=== PATIENT | male | born 1960 | race Caucasian/White ===

== ENCOUNTER 2020-03-16 08:11 | Outpatient (REF) | payer OTHER, SELFPAY ==
[2020-03-16 10:21] LABS: MANUAL DIFF FLAG NO
[2020-03-16 10:40] LABS: Eosinophils Absolute Auto 0.2 X10*3/uL (0.0-0.4); Eosinophils Percent Auto 3.8 % (0-4); Hematocrit 43.6 % (42-52); Hemoglobin 14.2 g/dl (14.0-18.0); Imm Gran Abs Auto 0.02 X10*3/uL (0.00-0.03); Imm Gran Pct Auto 0.5 % (0.0-0.4); Lymphocytes Absolute Auto 1.1 X10*3/uL (1.2-4.9); Mean Corpuscular HGB Conc 32.6 g/dl (31.0-36.0); Mean Corpuscular Volume 89.2 fL (80-98); Mean Platelet Volume 9.9 fL (9.4-12.4); Monocytes Absolute Auto 0.3 X10*3/uL (0.1-1.2); Monocytes Percent Auto 8.4 % (2-11); Neutrophils Absolute Auto 2.3 X10*3/uL (2.0-8.3); Neutrophils Percent Auto 59.3 % (45-73); Platelet Count 182 X10*3/uL (160-400); Red Blood Count 4.89 X10*6/uL (4.60-5.80); Red Cell Distribution Width 13.2 % (11.0-16.0); White Blood Count 3.9 X10*3/uL (4.8-10.8)
[2020-03-16 10:48] LABS: Estimated Average Glucose 97 mg/dL
[2020-03-16 11:02] LABS: Anion Gap 11 (12-20); Blood Urea Nitrogen 13 mg/dL (9-16); Calcium 8.8 mg/dL (8.4-10.2); Carbon Dioxide 29 mmol/L (22-29); Chloride 103 mmol/L (96-108); Cholesterol 191 mg/dL; Estimated Glomerular Filt Rate > 60; Glucose Fasting 89 mg/dL (60-99); HDL Cholesterol 84 mg/dL; LDL Cholesterol Calculated 95 mg/dl; Sodium 139 mmol/L (135-145); Triglycerides 62 mg/dL
== END 2020-03-16 08:12 | disposition home or self-care (01) ==
LOC: HO.LAB 08:11
PROVIDERS: PCP Nurse Practitioner Family; Visit Provider Nurse Practitioner Family
DX: I10 Essential (primary) hypertension (principal)
CPT/HCPCS: 36415; 80048; 80061; 83036; 85025

== ENCOUNTER 2021-02-23 08:47 | Outpatient (REF) | payer BC, SELFPAY ==
[2021-02-23 09:03] LABS: MANUAL DIFF FLAG NO
[2021-02-23 09:46] LABS: Basophils Percent Auto 0.3 % (0-2); Eosinophils Absolute Auto 0.1 X10*3/uL (0.0-0.4); Eosinophils Percent Auto 2.3 % (0-4); Hematocrit 41.5 % (42.0-52.0); Hemoglobin 13.9 g/dl (14.0-18.0); Imm Gran Abs Auto 0.02 X10*3/uL (0.00-0.03); Imm Gran Pct Auto 0.5 % (0.0-0.4); Lymphocytes Absolute Auto 1.1 X10*3/uL (1.2-4.9); Lymphocytes Percent Auto 29.6 % (20-40); Mean Corpuscular HGB Conc 33.5 g/dl (31.0-36.0); Mean Corpuscular Volume 89.4 fL (80.0-98.0); Mean Platelet Volume 9.7 fL (9.4-12.4); Monocytes Absolute Auto 0.3 X10*3/uL (0.1-1.2); Monocytes Percent Auto 8.3 % (2-11); Neutrophils Absolute Auto 2.3 x10*3/uL (2.0-8.3); Platelet Count 169 X10*3/uL (160-400); Red Blood Count 4.64 X10*6/uL (4.60-5.80); White Blood Count 3.9 X10*3/uL (4.8-10.8)
[2021-02-23 10:30] LABS: Alanine Aminotransferase 20 U/L (0-40); Alkaline Phosphatase 81 U/L (39-117); Anion Gap 10 (12-20); Aspartate Amino Transferase 17 U/L (5-37); Bilirubin Total 0.5 mg/dL (0.0-1.0); Blood Urea Nitrogen 16 mg/dL (9-16); Calcium 9.4 mg/dL (8.4-10.2); Carbon Dioxide 30 mmol/L (22-29); Chloride 107 mmol/L (96-108); Cholesterol 182 mg/dL; Estimated Glomerular Filt Rate > 60; Glucose Random 95 mg/dL (60-115); HDL Cholesterol 65 mg/dL; LDL Cholesterol Calculated 103 mg/dl; Potassium 4.4 mmol/L (3.3-5.1); Sodium 143 mmol/L (135-145); Total Protein 6.7 g/dL (6.5-8.0); Triglycerides 71 mg/dL
[2021-02-23 10:37] LABS: Free T4 (Free Thyroxine) 0.84 ng/dL (0.71-1.85); Thyroid Stimulating Hormone 1.63 uIU/mL (0.32-4.0)
[2021-02-23 10:47] LABS: Estimated Average Glucose 100 mg/dL; Hemoglobin A1c % 5.1 %
[2021-02-23 10:48] LABS: Folate 7.4 ng/mL (> or = 4.0); Vitamin B12 213 pg/mL (200-900)
== END 2021-02-23 08:48 | disposition home or self-care (01) ==
LOC: HO.LAB 08:47
PROVIDERS: PCP Internal Medicine; Visit Provider Internal Medicine
DX: Z12.5 Encounter for screening for malignant neoplasm of prostate (principal); I10 Essential (primary) hypertension; E78.00 Pure hypercholesterolemia, unspecified
CPT/HCPCS: 36415; 80053; 80061; 82607; 82746; 83036; 84153; 84439; 84443; 85025

== ENCOUNTER 2022-02-02 09:24 | Outpatient (REF) | payer BC, SELFPAY ==
--- NOTE | ~2022-02-02 | XR_ITS ---
EXAMINATION: XR KNEE, RIGHT CLINICAL INFORMATION: Pain COMPARISON: None TECHNIQUE: Two views of the right knee. FINDINGS: Bone alignment is mild varus angulation. No fracture or dislocation is seen. There is severe tricompartment arthritis. There is degenerative meniscal calcification. There is soft tissue calcification and ossification adjacent to the medial knee joint are questionable for changes related to old trauma. There is no suprapatellar joint effusion. There is increased soft tissue posterior to the knee questionable for a Brown's cyst. XR/XR knee RT 2V IMPRESSION: Severe right knee arthritis. No suprapatellar joint effusion. Increased soft tissue posterior to the knee joint questionable for a Brown's cyst.
[2022-02-02 09:43] LABS: MANUAL DIFF FLAG NO
[2022-02-02 10:31] LABS: Basophils Percent Auto 0.2 % (0-2); Eosinophils Absolute Auto 0.1 X10*3/uL (0.0-0.4); Eosinophils Percent Auto 2.2 % (0-4); Hematocrit 42.5 % (42.0-52.0); Hemoglobin 14.3 g/dl (14.0-18.0); Imm Gran Abs Auto 0.02 X10*3/uL (0.00-0.03); Imm Gran Pct Auto 0.4 % (0.0-0.4); Lymphocytes Absolute Auto 0.9 X10*3/uL (1.2-4.9); Lymphocytes Percent Auto 17.2 % (20-40); Mean Corpuscular HGB Conc 33.6 g/dl (31.0-36.0); Mean Corpuscular Hemoglobin 29.4 pg (27.0-33.0); Mean Corpuscular Volume 87.4 fL (80.0-98.0); Mean Platelet Volume 9.6 fL (9.4-12.4); Monocytes Absolute Auto 0.5 X10*3/uL (0.1-1.2); Monocytes Percent Auto 10.3 % (2-11); Neutrophils Absolute Auto 3.4 x10*3/uL (2.0-8.3); Neutrophils Percent Auto 69.7 % (45-73); Platelet Count 183 X10*3/uL (160-400); Red Blood Count 4.86 X10*6/uL (4.60-5.80); White Blood Count 4.9 X10*3/uL (4.8-10.8)
[2022-02-02 11:09] LABS: Alanine Aminotransferase 25 U/L (0-40); Albumin Level 4.2 g/dL (3.5-5.0); Alkaline Phosphatase 94 U/L (39-117); Anion Gap 14 (12-20); Aspartate Amino Transferase 18 U/L (5-37); Bilirubin Total 0.5 mg/dL (0.0-1.0); Blood Urea Nitrogen 15 mg/dL (9-16); Calcium 9.5 mg/dL (8.4-10.2); Carbon Dioxide 28 mmol/L (22-29); Chloride 103 mmol/L (96-108); Cholesterol 189 mg/dL; Estimated Glomerular Filt Rate > 60; Glucose Random 96 mg/dL (60-115); HDL Cholesterol 75 mg/dL; LDL Cholesterol Calculated 101 mg/dl; Potassium 4.2 mmol/L (3.3-5.1); Sodium 141 mmol/L (135-145); Total Protein 6.9 g/dL (6.5-8.0); Triglycerides 66 mg/dL
[2022-02-02 11:24] LABS: Free T4 (Free Thyroxine) 0.89 ng/dL (0.71-1.85); Prostate Specific Antigen Scr 0.21 ng/mL (<0.05-4.0); Thyroid Stimulating Hormone 1.38 uIU/mL (0.32-4.0)
[2022-02-02 12:03] LABS: Vitamin B12 477 pg/mL (200-900)
[2022-02-02 12:06] LABS: Folate 6.9 ng/mL (> or = 4.0)
== END 2022-02-02 09:25 | disposition home or self-care (01) ==
LOC: HO.LAB 09:24
PROVIDERS: PCP Internal Medicine; Visit Provider Internal Medicine
DX: Z12.5 Encounter for screening for malignant neoplasm of prostate (principal); M25.561 Pain in right knee; E78.00 Pure hypercholesterolemia, unspecified; I10 Essential (primary) hypertension
CPT/HCPCS: 36415; 73560; 80053; 80061; 82607; 82746; 84153; 84439; 84443; 85025

== ENCOUNTER 2023-02-03 08:46 | Outpatient (AMB) | payer BC, SELFPAY ==
[2023-02-03 09:06] VITALS: BP 142/90; PULSE 72; O2SAT 99; BMI 41.8
--- NOTE | 2023-02-03 09:06 | MHC.PC.OV ---
Vital Signs 02/03/23 09:06 02/03/23 09:30 Height 6 ft Weight 308 lb 0.6 oz BMI 41.8 BP 142/90 H 136/80 Blood Pressure Location Lt brachial Lt brachial Position Sitting Sitting Pulse 72 Pulse Source Pulse Oximeter Pulse Oximetry (%) 99 Oxygen Delivery Method Room Air Intake Visit Reasons: Annual Exam Intake Note: Patient is here today for a physical. 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 Allergies Sulfa (Sulfonamide Antibiotics) Allergy (Intermediate, Verified 02/03/23 09:07) p Medication List - Last Reconciled 02/03/23 by Shmuel Esquivel MD amlodipine 10 mg PO DAILY 90 days cyanocobalamin (vitamin B-12) 1,000 mcg PO DAILY 90 days triamcinolone acetonide 0.1% 1 appl topical BID 10 days valsartan-hydrochlorothiazide 320-25 mg 1 tab PO DAILY Tobacco use date assessed: 02/03/23 Dental Screening Dental Screen Date: 02/03/23 Did you have a dental visit in the last 12 months?: Yes Did you have a dental problem in the last 6 months where you did not have access to dental care?: No Was dental information given to patient?: Patient has dentist HPI Annual Exam HPI Details 62-year-old obese male with hypertension and right knee osteoarthritis coming in for physical exam. Last seen in August 2022 patient is up-to-date with colonoscopy [facility] Medical History (Updated 08/01/22 @ 11:45 by Shmuel Esquivel MD) Knee pain, right Hypertension Surgical History (System 04/27/22 @ 13:38 by Maria D Barclay) History of tonsillectomy H/O right knee surgery H/O left knee surgery Family History (Updated 02/03/23 @ 09:31 by Shmuel Esquivel MD) Mother Lung cancer Father Heart failure Heart attack Social History (Updated 02/03/23 @ 09:32 by Shmuel Esquivel MD) Housing: House Alcohol intake: current Alcohol intake frequency: holidays/special occasions only Patient Tobacco Use Status: Never used Tobacco Tobacco use type: Cigarette e-Cigarette/Vaping Use: Never Used Second Hand Smoke Exposure: No service: No Current occupational status: employed Cognitive needs: No Hearing needs: No Vision needs: Yes Questionnaire Thrive Questionnaire Date Thrive assessed: 08/01/22 AUDIT C Alcohol Use Questionnaire (AUDIT-C) 1. How often do you have a drink containing alcohol?: Monthly or less 2. How many drinks containing alcohol do you have on a typical day when you are drinking?: 1 or 2 3. How often do you have six or more drinks on one occasion?: Never Total Score: 1 ESTEPHANIA-7 AMB Questionnaire ESTEPHANIA-7 Date ESTEPHANIA - 7 assessed: 08/01/22 Source: Developed by Drs. Blaine Carrasco, Leighann Johnson, Nilson Salinas and colleagues, with an educational peggy from [employer]. Review of Systems Const Denies poor appetite and Denies weakness Eyes Denies no additional complaints ENT Reports Normal hearing present, Denies dizziness, Denies nasal congestion, Denies tinnitus and Denies sore throat Card Denies chest pain, Denies syncope, Denies rapid heart rate and Denies dyspnea Resp Denies cough and Denies dyspnea GI Denies change in stool character, Reports constipation, Denies diarrhea, Denies nausea and Denies vomiting Denies dysuria and Denies urinary frequency Neuro Reports Normal hearing present, Denies confusion, Denies dizziness, Denies syncope and Denies weakness Psych Denies confusion Physical exam (Primary Care) Vital Signs: Last Vital Signs Pulse 72 02/03/23 09:06 BP 142/90 H 02/03/23 09:06 Pulse Ox 99 02/03/23 09:06 Oxygen Delivery Method Room Air 02/03/23 09:06 BMI result Body Mass Index 41.8 Tobacco/Smoking Status: Tobacco use Status Tobacco use date assessed 02/03/23 02/03/23 09:12 Patient Tobacco Use Status Never used Tobacco 02/03/23 09:12 Tobacco use type Cigarette 02/03/23 09:12 e-Cigarette/Vaping Use Never Used 02/03/23 09:12 Thrive Assessment: Date of Thrive Assessment Date Thrive assessed 08/01/22 02/03/23 09:12 Const General: No confusion Orientation/consciousness: No confusion HENMT Head: Yes normocephalic Ears: external ears normal and TM's normal bilaterally Face and sinus: Yes normal facial exam Mouth: moist mucous membranes Throat: Yes tonsils normal Eyes Conjunctivae: conjunctivae normal Pupils: Equal, round and reactive pupils present and Pupil accommodation reflex normal Direct Ophthalmoscopy: normal light reflex Neck Neck: No lymphadenopathy Thyroid: Thyroid normal Chest Chest palpation & inspection: normal inspection of the chest Resp Effort & Inspection: normal respiratory effort and no audible wheezes Auscultation: clear to auscultation bilaterally, no crackles, no wheezes and lung sounds not diminished Cardio Rate: regular rate Rhythm: regular rhythm Peripheral pulses: radial pulses present and dorsalis pedis present GI Other: guaiac negative prostate normal Palpation (GI): no masses Auscultation: normal bowel sounds and normoactive bowel sounds Male General Exam: Yes normal external exam Skin General skin exam: no rashes or lesions noted Rashes: no rashes Neuro General: No confusion Cranial nerves: Yes Equal, round and reactive pupils present and Yes Normal hearing present Cognition (Neuro): normal cognition Gait exam (Neuro): Normal gait present Motor exam (neuro): 5/5 motor strength present throughout Deep tendon reflexes (DTR's): Right brachioradialis reflex intensity grade: 2+, Left brachioradialis reflex intensity grade: 2+, Right patellar reflex intensity grade: 2+ and Left patellar reflex intensity grade: 2+ Extrem Other: ++ LEedema General: Yes edema Office Procedures Flu Questionnaire Does the patient have a severe egg allergy?: No Does the patient have severe life threatening allergies?: No Does the patient have a fever or illness today?: No Has the patient ever had Guillain-Helm Syndrome?: No Has the patient ever had any past reaction to a flu shot?: No Immunizations flu vacc [id number] 6mos up(PF) 60 mcg(15 mcgx4)/0.5 mL IM syringe Performing Provider: Shmuel Esquivel MD Performing Location: [facility] Administered by: MARLENY Lopez on 02/03/23 09:14 Dose Route Admin Location Dispensed Lot Number Expiration Date NDC 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 Specialist 0.5 mL IM Left Deltoid 0.5 mL [id number] 10/01/23 01229-041-15 [employer] VIS Given Date VIS Provided VIS Publication Date 02/03/23 Single Vaccine 20 Eligibility Eligibility Date Funding Source Not VFC Eligible 02/03/23 Private Assessment and Plan Assessment & Plan (1) Annual physical exam: Code(s): Z00.00 - Encounter for general adult medical examination without abnormal findings (2) Obesity: Code(s): E66.9 - Obesity, unspecified Qualifiers: Obesity type: due to excess calories Obesity classification: adult class 3 (BMI >= 40) Serious obesity comorbidity presence: without serious comorbidity Body mass index: BMI 40.0-44.9 Qualified Code(s): E66.01 - Morbid (severe) obesity due to excess calories; Z68.41 - Body mass index [BMI]40.0-44.9, adult Plan: Diet and exercise (3) Hypertension: Code(s): I10 - Essential (primary) hypertension Qualifiers: Hypertension type: essential hypertension Qualified Code(s): I10 - Essential (primary) hypertension Plan: Continue with blood pressure medication. Decrease salt intake and exercise presently on amlodipine 10 mg once a day and valsartan hydrochlorothiazide 320 mg/25 mg once a (4) Osteoarthritis of right knee: Comment: Februaryevere right knee arthritis. No suprapatellar joint effusion. Increased soft tissue posterior to the knee joint questionable for a Brown's cyst. Code(s): M17.11 - Unilateral primary osteoarthritis, right knee Plan: Losing weight helps, keep active Orders: Orders Influenza [id number] Immunization Today Z23 - Encounter for immunization Complete Blood Count Auto Diff Today I10 - Essential (primary) hypertension Comprehensive Met. Panel Today I10 - Essential (primary) hypertension Prostate Specific Antigen Scr Today I10 - Essential (primary) hypertension Thyroid Stimulating Hormone Today I10 - Essential (primary) hypertension Lipid Panel Today E78.00 - Pure hypercholesterolemia, unspecified, I10 - Essential (primary) hypertension Free T4 (Free Thyroxine) Today I10 - Essential (primary) hypertension Vitamin B12 and Folate Today I10 - Essential (primary) hypertension Coding Level of Care Code Est Pt Prev Care 40-64y(34184) Diagnoses Annual physical exam Z00.00 Class 3 severe obesity due to excess calories without serious comorbidity with body mass index (BMI) of 40.0 to 44.9 in adult E66.01; Z68.41 Obesity type: due to excess calories Obesity classification: adult class 3 (BMI >= 40) Serious obesity comorbidity presence: without serious comorbidity Body mass index: BMI 40.0-44.9 Essential hypertension I10 Hypertension type: essential hypertension Osteoarthritis of right knee M17.11
[2023-02-03 09:30] VITALS: BP 136/80
== END 2023-02-03 09:49 | disposition home or self-care (01) ==
PROVIDERS: Visit Provider Internal Medicine
DX: Z00.00 Encounter for general adult medical examination without abnormal findings (principal); E66.01 Morbid (severe) obesity due to excess calories; Z68.41 Body mass index [BMI] 40.0-44.9, adult; I10 Essential (primary) hypertension; M17.11 Unilateral primary osteoarthritis, right knee; Z23 Encounter for immunization
CPT/HCPCS: 90471; 90686; 99396

== ENCOUNTER 2023-02-27 09:37 | Outpatient (REF) | payer BC, SELFPAY ==
[2023-02-27 09:51] LABS: MANUAL DIFF FLAG NO
[2023-02-27 10:30] LABS: Basophils Percent Auto 0.3 % (0-2); Eosinophils Absolute Auto 0.1 X10*3/uL (0.0-0.4); Eosinophils Percent Auto 2.8 % (0-4); Hematocrit 41.6 % (42.0-52.0); Imm Gran Abs Auto 0.01 X10*3/uL (0.00-0.03); Imm Gran Pct Auto 0.3 % (0.0-0.4); Lymphocytes Absolute Auto 0.9 X10*3/uL (1.2-4.9); Lymphocytes Percent Auto 23.2 % (20-40); Mean Corpuscular HGB Conc 33.7 g/dl (31.0-36.0); Mean Corpuscular Hemoglobin 29.7 pg (27.0-33.0); Mean Corpuscular Volume 88.1 fL (80.0-98.0); Mean Platelet Volume 9.7 fL (9.4-12.4); Monocytes Absolute Auto 0.3 X10*3/uL (0.1-1.2); Monocytes Percent Auto 8.6 % (2-11); Neutrophils Absolute Auto 2.6 x10*3/uL (2.0-8.3); Neutrophils Percent Auto 64.8 % (45-73); Platelet Count 165 X10*3/uL (160-400); Red Blood Count 4.72 X10*6/uL (4.60-5.80); Red Cell Distribution Width 13.2 % (11.0-16.0)
[2023-02-27 11:28] LABS: Alanine Aminotransferase 24 U/L (0-40); Albumin Level 4.2 g/dL (3.5-5.0); Alkaline Phosphatase 82 U/L (39-117); Anion Gap 10 (12-20); Aspartate Amino Transferase 19 U/L (5-37); Bilirubin Total 0.6 mg/dL (0.0-1.0); Blood Urea Nitrogen 13 mg/dL (9-16); Calcium 9.3 mg/dL (8.4-10.2); Carbon Dioxide 28 mmol/L (22-29); Chloride 106 mmol/L (96-108); Cholesterol 190 mg/dL (<200); Estimated Glomerular Filt Rate > 60; Glucose Random 88 mg/dL (60-115); HDL Cholesterol 78 mg/dL (>40); LDL Cholesterol Calculated 100 mg/dL (<100); Potassium 3.9 mmol/L (3.3-5.1); Sodium 140 mmol/L (135-145); Total Protein 7.2 g/dL (6.5-8.0); Triglycerides 64 mg/dL (<150)
[2023-02-27 11:34] LABS: Thyroid Stimulating Hormone 2.03 uIU/mL (0.32-4.0)
[2023-02-27 11:38] LABS: Folate 6.1 ng/mL (> or = 4.0); Prostate Specific Antigen Scr 0.29 ng/mL (<0.05-4.0); Vitamin B12 466 pg/mL (200-900)
== END 2023-02-27 09:38 | disposition home or self-care (01) ==
LOC: HO.LAB 09:37
PROVIDERS: PCP Internal Medicine; Visit Provider Internal Medicine
DX: Z12.5 Encounter for screening for malignant neoplasm of prostate (principal); I10 Essential (primary) hypertension; E78.00 Pure hypercholesterolemia, unspecified
CPT/HCPCS: 36415; 80053; 80061; 82607; 82746; 84153; 84439; 84443; 85025

== ENCOUNTER 2023-08-04 08:40 | Outpatient (AMB) | payer BC, SELFPAY ==
[2023-08-04 08:54] VITALS: BP 138/82; PULSE 87; O2SAT 98; BMI 43.0
--- NOTE | 2023-08-04 08:54 | MHC.PC.OV ---
Vital Signs 08/04/23 08:54 Height 6 ft Weight 317 lb BMI 43.0 BP 138/82 Blood Pressure Location Lt brachial Position Sitting Pulse 87 Pulse Source Pulse Oximeter Pulse Oximetry (%) 98 Oxygen Delivery Method Room Air Intake Visit Reasons: morbid obesity, HTN Allergies Sulfa (Sulfonamide Antibiotics) Allergy (Intermediate, Verified 08/04/23 08:54) p Medication List - Last Reconciled 08/04/23 by Shmuel Esquivel MD amlodipine 10 mg PO DAILY 90 days cyanocobalamin (vitamin B-12) 1,000 mcg PO DAILY 90 days triamcinolone acetonide 0.1% 1 appl topical BID 10 days valsartan-hydrochlorothiazide 320-25 mg 1 tab PO DAILY Tobacco use date assessed: 08/04/23 Fall risk assessment: No Falls in past year Last assessed Fall Risk: 08/04/23 Dental Screening Dental Screen Date: 08/04/23 Did you have a dental visit in the last 12 months?: Yes Did you have a dental problem in the last 6 months where you did not have access to dental care?: No Was dental information given to patient?: Patient has dentist HPI morbid obesity, HTN HPI Details 63-year-old morbidly obese male with hypertension right knee osteoarthritis coming in for follow-up. Last seen in February 2023 for physical exam. Patient's colonoscopy is up-to-date May 2018 10 years. takes tylenol for pain. weight increase polyp mass on the L side of nose not bothering [facility] Medical History (Updated 08/01/22 @ 11:45 by Shmuel Esquivel MD) Knee pain, right Hypertension Surgical History (System 04/27/22 @ 13:38 by Maria D Barclay) History of tonsillectomy H/O right knee surgery H/O left knee surgery Family History (Updated 02/03/23 @ 09:31 by Shmuel Esquivel MD) Mother Lung cancer Father Heart failure Heart attack Social History (Updated 02/03/23 @ 09:32 by Shmuel Esquivel MD) Housing: House Alcohol intake: current Alcohol intake frequency: holidays/special occasions only Patient Tobacco Use Status: Never used Tobacco Tobacco use type: Cigarette e-Cigarette/Vaping Use: Never Used Second Hand Smoke Exposure: No service: No Current occupational status: employed Cognitive needs: No Hearing needs: No Vision needs: Yes Questionnaire PHQ-9 Over the last 2 weeks, how often have you been bothered by any of the following problems? 1. Little interest or pleasure in doing things: not at all 2. Feeling down, depressed, or hopeless: not at all 3. Trouble falling or staying asleep, or sleeping too much: not at all 4. Feeling tired or having little energy: not at all 5. Poor appetite or overeating: not at all 6. Feeling bad about yourself - or that you are a failure or have let yourself or your family down: not at all 7. Trouble concentrating on things, such as reading the newspaper or watching television: not at all 8. Moving or speaking so slowly that other people could have noticed. Or the opposite - being so fidgety or restless that you have been moving around a lot more than usual: not at all 9. Thoughts that you would be better off or of hurting yourself in some way: not at all Total score: 0 Depression Screening Interpretation: Negative Depression Screening Done: Yes Source: Developed by Drs. Blaine Carrasco, Leighann Johnson, Nilson Salinas and colleagues, with an educational peggy from [employer]. Thrive Questionnaire Date Thrive assessed: 08/04/23 I am a: Patient What is your living situation today?: I have a steady place to live Within the past 12 months, did the food you bought not last and you didn't have the money to get more?: Never true Within the past 12 months, did you worry whether your food would run out before you got money to buy more?: Never true Do you have trouble paying for medicines?: No Do you have trouble getting transportation to medical appointments?: No Do you have trouble paying your heating and electricity bill?: No Do you have trouble taking care of your child, family member or friend?: No Do you have trouble with day-to-day activities such as bathing, preparing meals, shopping, managing finances, etc.?: No Are you currently unemployed and looking for a job?: No Are you interested in more education?: No Currently or been in a relationship where the following occur: no concerns reported THRIVE Score: 0 AUDIT C Alcohol Use Questionnaire (AUDIT-C) 1. How often do you have a drink containing alcohol?: Monthly or less 2. How many drinks containing alcohol do you have on a typical day when you are drinking?: 1 or 2 3. How often do you have six or more drinks on one occasion?: Never Total Score: 1 ESTEPHANIA-7 AMB Questionnaire ESTEPHANIA-7 Date ESTEPHANIA - 7 assessed: 08/04/23 Feeling nervous, anxious, or on edge: 0 = Not at all Not being able to stop or control worryin = Not at all Worrying too much about different things: 0 = Not at all Trouble relaxin = Not at all Being so restless that it is hard to sit still: 0 = Not at all Becoming easily annoyed or irritable: 0 = Not at all Feeling afraid as if something awful might happen: 0 = Not at all Total ESTEPHANIA-7 score (0-4 normal; 5-9 mild; 10-14 moderate; 15-21 severe): 0 Source: Developed by Drs. Blaine Carrasco, Leighann Johnson, Nilson Salinas and colleagues, with an educational peggy from [employer]. Physical exam (Primary Care) Vital Signs: Last Vital Signs Pulse 87 08/04/23 08:54 BP 138/82 08/04/23 08:54 Pulse Ox 98 08/04/23 08:54 Oxygen Delivery Method Room Air 08/04/23 08:54 BMI result Body Mass Index 43.0 Tobacco/Smoking Status: Tobacco use Status Tobacco use date assessed 08/04/23 08/04/23 09:00 Patient Tobacco Use Status Never used Tobacco 08/04/23 09:00 Tobacco use type Cigarette 08/04/23 09:00 e-Cigarette/Vaping Use Never Used 08/04/23 09:00 PHQ-9: PHQ-9 Score PHQ-9: Total score 0 08/04/23 09:00 Depression Screening Interpretation: Negative Thrive Assessment: Date of Thrive Assessment Date Thrive assessed 08/04/23 08/04/23 09:00 Currently or been in a relationship where the following occur: no concerns reported Const General: alert; No acute distress Eyes Conjunctivae: conjunctivae normal Resp Auscultation: clear to auscultation bilaterally Cardio Rate: regular rate Rhythm: regular rhythm GI Inspection: Yes normal to inspection Extrem General: Yes normal to inspection and No edema Assessment and Plan Assessment & Plan (1) Obesity: Code(s): E66.9 - Obesity, unspecified Qualifiers: Obesity type: due to excess calories Obesity classification: adult class 3 (BMI >= 40) Serious obesity comorbidity presence: without serious comorbidity Body mass index: BMI 40.0-44.9 Qualified Code(s): E66.01 - Morbid (severe) obesity due to excess calories; Z68.41 - Body mass index [BMI]40.0-44.9, adult Plan: Diet and exercise discussed importance of doing this as a lot of medical problems follow with weight. (2) Hypertension: Code(s): I10 - Essential (primary) hypertension Qualifiers: Hypertension type: essential hypertension Qualified Code(s): I10 - Essential (primary) hypertension Plan: Continue with blood pressure medication. Decrease salt intake and exercise presently taking valsartan hydrochlorothiazide 320/25 and amlodipine 10 mg once a day. (3) Osteoarthritis of right knee: Comment: Februaryevere right knee arthritis. No suprapatellar joint effusion. Increased soft tissue posterior to the knee joint questionable for a Brown's cyst. Code(s): M17.11 - Unilateral primary osteoarthritis, right knee Plan: Discussed about the weight being a problem. Patient needs to lose the weight Orders: Orders Complete Blood Count Auto Diff 6 Months I10 - Essential (primary) hypertension Free T4 (Free Thyroxine) 6 Months I10 - Essential (primary) hypertension Thyroid Stimulating Hormone 6 Months I10 - Essential (primary) hypertension Vitamin B12 and Folate 6 Months I10 - Essential (primary) hypertension Comprehensive Met. Panel 6 Months I10 - Essential (primary) hypertension Lipid Panel 6 Months E78.00 - Pure hypercholesterolemia, unspecified, I10 - Essential (primary) hypertension Prostate Specific Antigen Scr 6 Months I10 - Essential (primary) hypertension Medications: Discontinued hydrochlorothiazide PAtient has valsartan 320 HCTZ 12.5 and prescription for HCTZ 12.5 mg to equal Valsatan HCTZ 320/25 QD Discontinued Reason: Doctor's Order 12.5 mg PO DAILY 90 tabs 0RF Coding Level of Care Code Est Pt Level 4 (77798) Diagnoses Class 3 severe obesity due to excess calories without serious comorbidity with body mass index (BMI) of 40.0 to 44.9 in adult E66.01; Z68.41 Obesity type: due to excess calories Obesity classification: adult class 3 (BMI >= 40) Serious obesity comorbidity presence: without serious comorbidity Body mass index: BMI 40.0-44.9 Essential hypertension I10 Hypertension type: essential hypertension Osteoarthritis of right knee M17.11
== END 2023-08-04 09:28 | disposition home or self-care (01) ==
PROVIDERS: PCP Internal Medicine; Visit Provider Internal Medicine
DX: E66.01 Morbid (severe) obesity due to excess calories (principal); Z68.41 Body mass index [BMI] 40.0-44.9, adult; I10 Essential (primary) hypertension; M17.11 Unilateral primary osteoarthritis, right knee
CPT/HCPCS: 99214

== ENCOUNTER 2024-01-30 07:59 | Outpatient (REF) | payer BC, MEDICARE, SELFPAY ==
[2024-01-30 08:13] LABS: MANUAL DIFF FLAG NO
[2024-01-30 08:36] LABS: Basophils Percent Auto 0.2 % (0-2); Eosinophils Absolute Auto 0.1 X10*3/uL (0.0-0.4); Eosinophils Percent Auto 2.8 % (0-4); Hemoglobin 14.5 g/dl (14.0-18.0); Imm Gran Abs Auto 0.03 X10*3/uL (0.00-0.03); Imm Gran Pct Auto 0.7 % (0.0-0.4); Lymphocytes Percent Auto 22.4 % (20-40); Mean Corpuscular HGB Conc 33.7 g/dl (31.0-36.0); Mean Corpuscular Hemoglobin 29.8 pg (27.0-33.0); Mean Corpuscular Volume 88.3 fL (80.0-98.0); Mean Platelet Volume 9.6 fL (9.4-12.4); Monocytes Absolute Auto 0.4 X10*3/uL (0.1-1.2); Monocytes Percent Auto 9.2 % (2-11); Neutrophils Absolute Auto 2.7 x10*3/uL (2.0-8.3); Neutrophils Percent Auto 64.7 % (45-73); Platelet Count 173 X10*3/uL (160-400); Red Blood Count 4.87 X10*6/uL (4.60-5.80); Red Cell Distribution Width 13.4 % (11.0-16.0); White Blood Count 4.2 X10*3/uL (4.8-10.8)
[2024-01-30 09:30] LABS: Alanine Aminotransferase 26 U/L (0-40); Albumin Level 4.1 g/dL (3.5-5.0); Alkaline Phosphatase 86 U/L (39-117); Anion Gap 13 (12-20); Aspartate Amino Transferase 21 U/L (5-37); Bilirubin Total 0.6 mg/dL (0.0-1.0); Blood Urea Nitrogen 15 mg/dL (9-16); Calcium 9.6 mg/dL (8.4-10.2); Carbon Dioxide 29 mmol/L (22-29); Chloride 103 mmol/L (96-108); Cholesterol 186 mg/dL (<200); Estimated Glomerular Filt Rate > 60; Glucose Random 101 mg/dL (60-115); HDL Cholesterol 74 mg/dL (>40); LDL Cholesterol Calculated 95 mg/dL (<100); Potassium 3.7 mmol/L (3.3-5.1); Sodium 141 mmol/L (135-145); Total Protein 7.1 g/dL (6.5-8.0); Triglycerides 86 mg/dL (<150)
[2024-01-30 09:49] LABS: Folate 5.4 ng/mL (> or = 4.0); Prostate Specific Antigen Scr 0.22 ng/mL (<0.05-4.0); Vitamin B12 586 pg/mL (200-900)
[2024-01-30 09:51] LABS: Free T4 (Free Thyroxine) 0.98 ng/dL (0.71-1.85); Thyroid Stimulating Hormone 1.81 uIU/mL (0.32-4.0)
== END 2024-01-30 08:00 | disposition home or self-care (01) ==
LOC: HO.LAB 07:59
PROVIDERS: PCP Internal Medicine; Visit Provider Internal Medicine
DX: I10 Essential (primary) hypertension (principal); E78.00 Pure hypercholesterolemia, unspecified; Z12.5 Encounter for screening for malignant neoplasm of prostate
CPT/HCPCS: 36415; 80053; 80061; 82607; 82746; 84153; 84439; 84443; 85025

== ENCOUNTER 2024-02-09 08:50 | Outpatient (AMB) | payer BC, SELFPAY ==
--- NOTE | 2024-02-09 08:54 | MHC.PC.OV ---
Vital Signs 02/09/24 08:55 Height 6 ft Weight 310 lb BMI 42.0 BP 134/84 Blood Pressure Location Lt brachial Position Sitting Pulse 89 Pulse Source Pulse Oximeter Pulse Oximetry (%) 96 Oxygen Delivery Method Room Air Intake Visit Reasons: PE Intake Note: Patient is here today for a physical. 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 Bait Tier: Not Required per policy Accompanied by: Self / Same As Patient Allergies Sulfa (Sulfonamide Antibiotics) Allergy (Intermediate, Verified 02/09/24 08:55) p Medication List - Last Reconciled 02/09/24 by Shmuel Esquivel MD amlodipine 10 mg PO DAILY 90 days cyanocobalamin (vitamin B-12) 1,000 mcg PO DAILY 90 days triamcinolone acetonide 0.1% 1 appl topical BID 10 days valsartan-hydrochlorothiazide 320-25 mg 1 tab PO DAILY Tobacco use date assessed: 02/09/24 Fall risk assessment: No Falls in past year Last assessed Fall Risk: 02/09/24 Dental Screening Dental Screen Date: 08/04/23 HPI PE HPI Details 63-year-old morbidly obese male with hypertension and knee osteoarthritis coming in for physical exam last seen in 08/21/2023. Patient is up-to-date with colonoscopy. Noted 7 lb weight loss PFSH Medical History (Updated 02/09/24 @ 09:29 by Shmuel Esquivel MD) Knee pain, right Hypertension Surgical History History of tonsillectomy H/O right knee surgery H/O left knee surgery Family History Mother Lung cancer Father Heart failure Heart attack Social History (Updated 02/09/24 @ 09:27 by Shmuel Esquivel MD) Housing: House Alcohol intake: current Alcohol intake frequency: holidays/special occasions only Comment: once a year 1 drink Patient Tobacco Use Status: Never used Tobacco Tobacco use type: Cigarette e-Cigarette/Vaping Use: Never Used Second Hand Smoke Exposure: No service: No Current occupational status: employed Cognitive needs: No Hearing needs: No Vision needs: Yes Questionnaire PHQ-9 Over the last 2 weeks, how often have you been bothered by any of the following problems? 1. Little interest or pleasure in doing things: not at all 2. Feeling down, depressed, or hopeless: not at all 3. Trouble falling or staying asleep, or sleeping too much: not at all 4. Feeling tired or having little energy: not at all 5. Poor appetite or overeating: not at all 6. Feeling bad about yourself - or that you are a failure or have let yourself or your family down: not at all 7. Trouble concentrating on things, such as reading the newspaper or watching television: not at all 8. Moving or speaking so slowly that other people could have noticed. Or the opposite - being so fidgety or restless that you have been moving around a lot more than usual: not at all 9. Thoughts that you would be better off or of hurting yourself in some way: not at all Total score: 0 Depression Screening Interpretation: Negative Depression Screening Done: Yes Source: Developed by Drs. Blaine Carrasco, Leighann Johnson, Nilson Salinas and colleagues, with an educational peggy from [employer]. Thrive Questionnaire Date Thrive assessed: 02/09/24 I am a: Patient What is your living situation today?: I have a steady place to live Within the past 12 months, did the food you bought not last and you didn't have the money to get more?: Never true Within the past 12 months, did you worry whether your food would run out before you got money to buy more?: Never true Do you have trouble paying for medicines?: No Do you have trouble getting transportation to medical appointments?: No Do you have trouble paying your heating and electricity bill?: No Do you have trouble taking care of your child, family member or friend?: No Do you have trouble with day-to-day activities such as bathing, preparing meals, shopping, managing finances, etc.?: No Are you currently unemployed and looking for a job?: No Are you interested in more education?: No Please select the resources that you would like help with: None Currently or been in a relationship where the following occur: No concerns reported THRIVE Score: 0 AUDIT C Alcohol Use Questionnaire (AUDIT-C) 1. How often do you have a drink containing alcohol?: Monthly or less 2. How many drinks containing alcohol do you have on a typical day when you are drinking?: 1 or 2 3. How often do you have six or more drinks on one occasion?: Never Total Score: 1 ESTEPHANIA-7 AMB Questionnaire ESTEPHANIA-7 Date ESTEPHANIA - 7 assessed: 02/09/24 Feeling nervous, anxious, or on edge: 0 = Not at all Not being able to stop or control worryin = Not at all Worrying too much about different things: 0 = Not at all Trouble relaxin = Not at all Being so restless that it is hard to sit still: 0 = Not at all Becoming easily annoyed or irritable: 0 = Not at all Feeling afraid as if something awful might happen: 0 = Not at all Total ESTEPHANIA-7 score (0-4 normal; 5-9 mild; 10-14 moderate; 15-21 severe): 0 Source: Developed by Drs. Blaine Carrasco, Leighann Johnson, Nilson Salinas and colleagues, with an educational peggy from [employer]. Review of Systems Const Denies poor appetite and Denies weakness Eyes Denies no additional complaints ENT Reports Normal hearing present, Denies dizziness, Denies nasal congestion, Denies tinnitus and Denies sore throat Card Denies chest pain, Denies syncope, Denies rapid heart rate and Denies dyspnea Resp Denies cough and Denies dyspnea GI Denies change in stool character, Reports constipation, Denies diarrhea, Denies nausea and Denies vomiting Denies dysuria and Denies urinary frequency Neuro Reports Normal hearing present, Denies confusion, Denies dizziness, Denies syncope and Denies weakness Psych Denies confusion Physical exam (Primary Care) Vital Signs: Last Vital Signs Pulse 89 02/09/24 08:55 BP 134/84 02/09/24 08:55 Pulse Ox 96 02/09/24 08:55 Oxygen Delivery Method Room Air 02/09/24 08:55 BMI result Body Mass Index 42.0 Tobacco/Smoking Status: Tobacco use Status Tobacco use date assessed 02/09/24 02/09/24 08:59 Patient Tobacco Use Status Never used Tobacco 02/09/24 08:59 Tobacco use type Cigarette 02/09/24 08:59 e-Cigarette/Vaping Use Never Used 02/09/24 08:59 PHQ-9: PHQ-9 Score PHQ-9: Total score 0 02/09/24 09:06 Depression Screening Interpretation: Negative Thrive Assessment: Date of Thrive Assessment Date Thrive assessed 02/09/24 02/09/24 08:59 Currently or been in a relationship where the following occur: No concerns reported Const General: alert and awake; No confusion Orientation/consciousness: No confusion HENMT Head: Yes normocephalic Ears: external ears normal and TM's normal bilaterally Face and sinus: Yes normal facial exam Mouth: moist mucous membranes Throat: Yes tonsils normal Eyes Conjunctivae: conjunctivae normal Pupils: Equal, round and reactive pupils present and Pupil accommodation reflex normal Direct Ophthalmoscopy: normal light reflex Neck Neck: No lymphadenopathy Thyroid: Thyroid normal Chest Chest palpation & inspection: normal inspection of the chest Resp Effort & Inspection: normal respiratory effort and no audible wheezes Auscultation: clear to auscultation bilaterally, no crackles, no wheezes and lung sounds not diminished Cardio Rate: regular rate Rhythm: regular rhythm Peripheral pulses: radial pulses present and dorsalis pedis present GI Other: guaiac negative prostate normal Palpation (GI): no masses Auscultation: normal bowel sounds and normoactive bowel sounds Skin General skin exam: no rashes or lesions noted Rashes: no rashes Neuro General: deep tendon reflexes 2+ bilaterally and No confusion Cranial nerves: Yes Equal, round and reactive pupils present, Yes Midline tongue present, Yes Normal hearing present and Yes Ability to bilaterally elevate shoulders present Cognition (Neuro): normal cognition Gait exam (Neuro): Normal gait present Motor exam (neuro): 5/5 motor strength present throughout Deep tendon reflexes (DTR's): Right brachioradialis reflex intensity grade: 2+, Left brachioradialis reflex intensity grade: 2+, Right patellar reflex intensity grade: 2+ and Left patellar reflex intensity grade: 2+ Extrem General: No edema Office Procedures Flu Questionnaire Does the patient have a severe egg allergy?: No Does the patient have severe life threatening allergies?: No Does the patient have a fever or illness today?: No Has the patient ever had Guillain-Augusta Syndrome?: No Has the patient ever had any past reaction to a flu shot?: No Immunizations Fluarix Triv [id number] (PF) 45 mcg (15 mcg x 3)/0.5 mL IM syringe Performing Provider: Shmuel Esquivel MD [facility] Administered by: MARLENY Nicolas on 02/09/24 09:06 Dose Route Admin Location Dispensed Lot Number Expiration Date NDC [employer] 0.5 mL IM Left Deltoid 0.5 mL [id number] 09/30/24 52825-356-94 [employer] VIS Given Date VIS Provided VIS Publication Date 02/09/24 Single Vaccine 20 Eligibility Eligibility Date Funding Source Not [facility] Eligible 02/09/24 Private Coding Level of Care Code Est Pt Prev Care 40-64y(75755) Diagnoses Annual physical exam Z00.00 Class 3 severe obesity due to excess calories without serious comorbidity with body mass index (BMI) of 40.0 to 44.9 in adult E66.01; Z68.41 Obesity type: due to excess calories Obesity classification: adult class 3 (BMI >= 40) Serious obesity comorbidity presence: without serious comorbidity Body mass index: BMI 40.0-44.9 Essential hypertension I10 Hypertension type: essential hypertension Impaired fasting blood sugar R73.01 Assessment & Plan Assessment & Plan (1) Annual physical exam: Code(s): Z00.00 - Encounter for general adult medical examination without abnormal findings Category: Medical Plan: Patient is advised to eat healthy, keep well hydrated, keep active and have adequate sleep. (2) Obesity: Code(s): E66.9 - Obesity, unspecified Category: Medical Qualifiers: Obesity type: due to excess calories Obesity classification: adult class 3 (BMI >= 40) Serious obesity comorbidity presence: without serious comorbidity Body mass index: BMI 40.0-44.9 Qualified Code(s): E66.01 - Morbid (severe) obesity due to excess calories; Z68.41 - Body mass index [BMI]40.0-44.9, adult Plan: Diet and exercise (3) Hypertension: Code(s): I10 - Essential (primary) hypertension Category: Medical Qualifiers: Hypertension type: essential hypertension Qualified Code(s): I10 - Essential (primary) hypertension Plan: Continue with blood pressure medication. Decrease salt intake and exercise on amlodipine 10 mg once aday and valsartan hydrochlorothiazide (4) Impaired fasting blood sugar: Code(s): R73.01 - Impaired fasting glucose Category: Medical Plan: Discussed about diet and exercise, carbohydrates are sugar Orders: Orders Hemoglobin A1c 6 Months R73.01 - Impaired fasting glucose Influenza [id number] Immunization Today Z23 - Encounter for immunization Comprehensive Met. Panel 6 Months R73.01 - Impaired fasting glucose
[2024-02-09 08:55] VITALS: BP 134/84; PULSE 89; O2SAT 96; BMI 42.0
== END 2024-02-09 09:42 | disposition home or self-care (01) ==
PROVIDERS: PCP Internal Medicine; Visit Provider Internal Medicine
DX: Z00.00 Encounter for general adult medical examination without abnormal findings (principal); E66.01 Morbid (severe) obesity due to excess calories; Z68.41 Body mass index [BMI] 40.0-44.9, adult; I10 Essential (primary) hypertension; R73.01 Impaired fasting glucose; Z23 Encounter for immunization

== ENCOUNTER → 2024-02-09 08:50 | Outpatient (BNVA) | payer BC, SELFPAY | PROVIDERS: PCP Internal Medicine; Visit Provider Internal Medicine | DX: Z00.00 Encounter for general adult medical examination without abnormal findings (principal); E66.01 Morbid (severe) obesity due to excess calories; Z68.41 Body mass index [BMI] 40.0-44.9, adult; R73.01 Impaired fasting glucose; I10 Essential (primary) hypertension; Z79.899 Other long term (current) drug therapy; Z23 Encounter for immunization | CPT/HCPCS: 90471; 90656; 96127 ==

== ENCOUNTER 2024-08-02 08:10 | Outpatient (REF) | payer SELFPAY ==
--- OUTSIDE RECORDS SUMMARY | 2024-08-02 08:18 | XMS_ITS | Clinical Summary ---
Author Organization [facility] Address [address] [place] [address] Care Team Providers Care Art Psychotherapist Name Role Phone Unavailable Primary Care Provider Unavailabl e Social History Tobacco Use Types Packs/Day Years Used Date Smoking Tobacco: Never Assessed Sex and Gender Information Value Date Recorded Sex Assigned at Not on file Legal Sex Male 10:15 AM EST Gender Identity Not on file Sexual Orientation Not on file Plan of Treatment Health Maintenance Due Date Last Done Comments DTaP,Tdap,and Td Vaccines (1 - Tdap) 1978 Pneumococcal Vaccine: 50+ Ye ars (1 of 1 - PCV) 2009 Zoster Vaccines (1 of 2) 2009 COVID-19 Vaccine ( - 2023-2 5 season) 2023 Influenza Vaccine (Season Ended) 2024 RSV Immunization Adult Patie nts (1 - 1-dose 75+ series) 2034 HIB Vaccines Aged Out No longer eligi ble based on patient's age to complete this topic HPV Vaccines Aged Out No longer eligi ble based on patient's age to complete this topic Hepatitis A Vaccines Aged Out No long er eligible based on patient's age to complete this topic Hepatitis B Vaccines Aged Out No long er eligible based on patient's age to complete this topic IPV Vaccines Aged Out No longer eligi ble based on patient's age to complete this topic MMR Vaccines Aged Out No longer eligi ble based on patient's age to complete this topic Meningococcal ACWY Vaccine Aged Out N o longer eligible based on patient's age to complete this topic Meningococcal B Vaccine Aged Out No l onger eligible based on patient's age to complete this topic Pneumococcal Vaccine: Pediat rics (0 to 5 Years) and At-Risk Patients (6 to 64 Years) Aged Out No longer eligible b ased on patient's age to complete this topic RSV Immunization Patients Un mike 20 months Aged Out No longer eligible b ased on patient's age to complete this topic Varicella Vaccines Aged Out No longer eligible based on patient's age to complete this topic
[2024-08-02 08:39] LABS: Estimated Average Glucose 103 mg/dL; Hemoglobin A1c % 5.2 % (<6.0); Total Hemoglobin (HGBA1C) 3841.5966 umol/L
[2024-08-02 09:17] LABS: Albumin Level 4.3 g/dL (3.5-5.0); Alkaline Phosphatase 90 U/L (39-117); Anion Gap 12 (12-20); Aspartate Amino Transferase 23 U/L (5-37); Bilirubin Total 0.5 mg/dL (0.0-1.0); Blood Urea Nitrogen 16 mg/dL (9-16); Calcium 9.8 mg/dL (8.4-10.2); Carbon Dioxide 31 mmol/L (22-29); Chloride 103 mmol/L (96-108); Estimated Glomerular Filt Rate > 60; Glucose Random 104 mg/dL (60-115); Sodium 142 mmol/L (135-145); Total Protein 7.1 g/dL (6.5-8.0)
[2024-08-02 09:32] LABS: Alanine Aminotransferase 29 U/L (0-40)
== END 2024-08-02 08:11 | disposition home or self-care (01) ==
LOC: HO.LAB 08:10
PROVIDERS: PCP Internal Medicine; Visit Provider Internal Medicine
DX: R73.01 Impaired fasting glucose (principal)
CPT/HCPCS: 36415; 80053; 83036

== ENCOUNTER 2024-08-08 08:20 | Outpatient (AMB) | payer SELFPAY ==
[2024-08-08 08:23] VITALS: BP 132/82; PULSE 84; O2SAT 97; BMI 42.2
--- NOTE | 2024-08-08 08:23 | A.OFFPC_ITS ---
Vital Signs 08/08/24 08:23 Height 6 ft Weight 311 lb BMI 42.2 BP 132/82 Blood Pressure Location Lt brachial Position Sitting Pulse 84 Pulse Source Pulse Oximeter Pulse Oximetry (%) 97 Oxygen Delivery Method Room Air Intake Visit Reasons: IGT, HTN Allergies Sulfa (Sulfonamide Antibiotics) Allergy (Intermediate, Verified 08/08/24 08:24) p Tobacco use date assessed: 08/08/24 Fall risk assessment: No Falls in past year Last assessed Fall Risk: 08/08/24 Dental Screening Dental Screen Date: 08/08/24 Did you have a dental visit in the last 12 months?: Yes Did you have a dental problem in the last 6 months where you did not have access to dental care?: No Was dental information given to patient?: Patient has dentist [facility] Medical History (Updated 08/08/24 @ 08:35 by Shmuel Esquivel MD) Obesity Knee pain, right Hypertension Surgical History History of tonsillectomy H/O right knee surgery H/O left knee surgery Family History Mother Lung cancer Father Heart failure Heart attack Social History (Updated 02/09/24 @ 09:27 by Shmuel Esquivel MD) Housing: House Alcohol intake: current Alcohol intake frequency: holidays/special occasions only Comment: once a year 1 drink Patient Tobacco Use Status: Never used Tobacco Tobacco use type: Cigarette e-Cigarette/Vaping Use: Never Used Second Hand Smoke Exposure: No service: No Current occupational status: employed Cognitive needs: No Hearing needs: No Vision needs: Yes Questionnaire PHQ-9 Over the last 2 weeks, how often have you been bothered by any of the following problems? 1. Little interest or pleasure in doing things: not at all 2. Feeling down, depressed, or hopeless: not at all 3. Trouble falling or staying asleep, or sleeping too much: not at all 4. Feeling tired or having little energy: not at all 5. Poor appetite or overeating: not at all 6. Feeling bad about yourself - or that you are a failure or have let yourself or your family down: not at all 7. Trouble concentrating on things, such as reading the newspaper or watching television: not at all 8. Moving or speaking so slowly that other people could have noticed. Or the opposite - being so fidgety or restless that you have been moving around a lot more than usual: not at all 9. Thoughts that you would be better off or of hurting yourself in some way: not at all Total score: 0 Depression Screening Interpretation: Negative Depression Screening Done: Yes 26127 - PHQ-9 Billing: Yes Source: Developed by Drs. Blaine Carrasco, Leighann Johnson, Nilson Salinas and colleagues, with an educational peggy from [employer]. Thrive Questionnaire Date Thrive assessed: 08/08/24 I am a: Patient What is your living situation today?: I have a steady place to live Within the past 12 months, did the food you bought not last and you didn't have the money to get more?: Never true Within the past 12 months, did you worry whether your food would run out before you got money to buy more?: Never true Do you have trouble paying for medicines?: No Do you have trouble getting transportation to medical appointments?: No Do you have trouble paying your heating and electricity bill?: No Do you have trouble taking care of your child, family member or friend?: No Do you have trouble with day-to-day activities such as bathing, preparing meals, shopping, managing finances, etc.?: No Are you currently unemployed and looking for a job?: No Are you interested in more education?: No Please select the resources that you would like help with: None Currently or been in a relationship where the following occur: No concerns reported THRIVE Score: 0 AUDIT C Alcohol Use Questionnaire (AUDIT-C) 1. How often do you have a drink containing alcohol?: Monthly or less 2. How many drinks containing alcohol do you have on a typical day when you are drinking?: 1 or 2 3. How often do you have six or more drinks on one occasion?: Never Total Score: 1 ESTEPHANIA-7 AMB Questionnaire ESTEPHANIA-7 Date ESTEPHANIA - 7 assessed: 08/08/24 Feeling nervous, anxious, or on edge: 0 = Not at all Not being able to stop or control worryin = Not at all Worrying too much about different things: 0 = Not at all Trouble relaxin = Not at all Being so restless that it is hard to sit still: 0 = Not at all Becoming easily annoyed or irritable: 0 = Not at all Feeling afraid as if something awful might happen: 0 = Not at all Total ESTEPHANIA-7 score (0-4 normal; 5-9 mild; 10-14 moderate; 15-21 severe): 0 Source: Developed by Drs. Blaine Carrasco, Leighann Johnson, Nilson Salinas and colleagues, with an educational peggy from [employer]. Physical exam (Primary Care) Vital Signs: Last Vital Signs Pulse 84 08/08/24 08:23 BP 132/82 08/08/24 08:23 Pulse Ox 97 08/08/24 08:23 Oxygen Delivery Method Room Air 08/08/24 08:23 BMI result Body Mass Index 42.2 Tobacco/Smoking Status: Tobacco use Status Tobacco use date assessed 08/08/24 08/08/24 08:28 Patient Tobacco Use Status Never used Tobacco 08/08/24 08:28 Tobacco use type Cigarette 08/08/24 08:28 e-Cigarette/Vaping Use Never Used 08/08/24 08:28 PHQ-9: PHQ-9 Score PHQ-9: Total score 0 08/08/24 08:51 Depression Screening Interpretation: Negative Thrive Assessment: Date of Thrive Assessment Date Thrive assessed 08/08/24 08/08/24 08:28 Currently or been in a relationship where the following occur: No concerns reported Const General: alert; No acute distress Eyes Conjunctivae: conjunctivae normal Resp Auscultation: clear to auscultation bilaterally Cardio Rate: regular rate Rhythm: regular rhythm GI Inspection: Yes normal to inspection Extrem Other: 2 + edema LE General: Yes edema Immunizations pneumoc 20-ramiro conj-dip cr(PF) 0.5 mL IM syringe Performing Provider: Shmuel Esquivel MD [facility] Administered by: MARLENY Nicolas on 08/08/24 08:51 Dose Route Admin Location Dispensed Lot Number Expiration Date [facility] Technical Project Manager 0.5 mL IM Left Deltoid 0.5 mL [id number] 06/01/25 3872-9053-73 [employer] VIS Given Date VIS Provided VIS Publication Date 08/08/24 Single Vaccine 22 Eligibility Eligibility Date Funding Source Not [facility] Eligible 08/08/24 Private Coding Level of Care Code Est Pt Level 4 (78121) Diagnoses Morbid (severe) obesity due to excess calories E66.01 Impaired fasting blood sugar R73.01 Osteoarthritis of right knee M17.11 Essential hypertension I10 Hypertension type: essential hypertension Additional Codes PHQ-9 - 10853 - PHQ-9 Billing: Yes ([id number]) Assessment & Plan Assessment & Plan (1) Morbid (severe) obesity due to excess calories: Code(s): E66.01 - Morbid (severe) obesity due to excess calories Category: Medical Plan: Diet and exercise (2) Impaired fasting blood sugar: Code(s): R73.01 - Impaired fasting glucose Category: Medical Plan: Decrease the amount of carbohydrate intake, pasta, bread, rice and potatoes are all sugar and that is aside from all the sweet stuff, remember that fruits are good but they are Sweet also. (3) Osteoarthritis of right knee: Comment: Februaryevere right knee arthritis. No suprapatellar joint effusion. Increased soft tissue posterior to the knee joint questionable for a Brown's cyst. Code(s): M17.11 - Unilateral primary osteoarthritis, right knee Category: Medical Plan: Continue to be active try to lose the weight. If continues to have pain to call and we may have to do a referral to orthopedics (4) Hypertension: Code(s): I10 - Essential (primary) hypertension Category: Medical Qualifiers: Hypertension type: essential hypertension Qualified Code(s): I10 - Essential (primary) hypertension Plan: Continue with blood pressure medication. Decrease salt intake and exercise on valsartan hydrochlorothiazide and amlodipine. Plan History of Present Illness The patient is a 64-year-old male presenting with follow-up for hypertension, impaired glucose tolerance, and right knee osteoarthritis. The patient has been managing hypertension with a regimen of valsartan, hydrochlorothiazide, and a mlodipine. The impaired glucose tolerance is characterized by fasting blood sugar readings of 101 and 104, with a normal hemoglobin A1c indicating stability but warranting continued monitoring. The knee osteoarthritis is managed conservatively despite imaging indicating '[id number]' changes; pain intensifies with activities requiring extended walking or standing, although daily routines are generally manageable. Leukopenia noted over several years is being monitored and has shown stability without necessitating intervention. Bloodwork conducted on January 29 demonstrated normal complete blood count apart from mild leukopenia. Electrolytes, renal, liver function tests, and PSA levels remained within normal parameters. The last colonoscopy in 2018 was satisfactory. Health Maintenance - Monitoring of blood glucose levels with focus on diet and exercise - Cholesterol control has been maintained - Annual sugar levels and PSA monitored with long-term follow-ups - Pneumonia vaccination discussed and administered - Recommendations for glucosamine and Voltaren gel for knee pain - Weight management addressed with potential office aide discussed Social History - Regular exercise routine resumed including dog walking - Challenges with weight management discussed, with considerations for medication and referral options Review of Systems - Musculoskeletal: Reports knee pain exacerbated by walking or standing for extended periods - Endocrine: Denies new symptoms related to glucose levels Physical Exam Results - Labs: Normal complete blood count except for mild leukopenia, normal electrolytes, renal function, liver function tests, PSA normal - Tests and Diagnostics: Last colonoscopy done in 2018, results up to date Plan Hypertension management will continue with valsartan, hydrochlorothiazide, and amlodipine despite mild edema; impaired glucose tolerance will be monitored through lifestyle adjustments and occasional fasting blood sugar checks, supported by stable hemoglobin A1c levels. Knee osteoarthritis will be managed with glucosamine and Voltaren gel, considering future orthopedics referral if necessary. Weight reduction strategies were discussed with options for weight loss medication and potential program referral if initial efforts do not yield results. Pneumococcal vaccine administered to support preventive healthcare. Patient was informed and verbally consented to the use of an ambient scribe for clinic note documentation during this visit. Discussion Notes I discussed with the patient the current stability in hypertension management despite mild edema potentially related to amlodipine, recommending continuation while monitoring. The importance of lifestyle modifications for impaired glucose tolerance was highlighted with support for current stable hemoglobin A1c levels. Management of knee osteoarthritis is focused on conservative treatments, while potential future referral to orthopedics was outlined if symptoms progress. Weight management strategies were discussed with options for pharmacological support and referral if necessary. Pneumococcal vaccination was administered during this visit. Patient Instructions - Continue current medications for blood pressure and monitor for any side effects - Maintain diet and exercise routine to manage blood sugar and weight - Try glucosamine and Voltaren gel for knee pain - Schedule for complete blood work six months prior to the next physical - Observe for swelling changes in the morning and report if concerning - Follow up with me as needed, and ensure adherence to annual health maintenance screenings Orders: Orders Vitamin B12 and Folate 6 Months R73.01 - Impaired fasting glucose Free T4 (Free Thyroxine) 6 Months R73.01 - Impaired fasting glucose Hemoglobin A1c 6 Months R73.01 - Impaired fasting glucose Comprehensive Met. Panel 6 Months R73.01 - Impaired fasting glucose Complete Blood Count Auto Diff 6 Months R73.01 - Impaired fasting glucose Lipid Panel 6 Months E78.00 - Pure hypercholesterolemia, unspecified, R73.01 - Impaired fasting glucose Thyroid Stimulating Hormone 6 Months R73.01 - Impaired fasting glucose Prostate Specific Antigen Scr 6 Months R73.01 - Impaired fasting glucose Pneumococcal 20 Immunization Today Z23 - Encounter for immunization
--- OUTSIDE RECORDS SUMMARY | 2024-08-08 08:39 | XMS_ITS | Clinical Summary ---
Author Organization [facility] ity Address [address] [place] [address] Care Team Providers Care Automatic Folder Seamer Name Role Phone Unavailable Primary Care Provider [...]
== END 2024-08-08 08:53 | disposition home or self-care (01) ==
LOC: HO.HMCH 08:20
PROVIDERS: PCP Internal Medicine; Visit Provider Internal Medicine
DX: R73.01 Impaired fasting glucose (principal); E66.01 Morbid (severe) obesity due to excess calories; Z68.41 Body mass index [BMI] 40.0-44.9, adult; M17.11 Unilateral primary osteoarthritis, right knee; I10 Essential (primary) hypertension; Z23 Encounter for immunization

== ENCOUNTER → 2024-08-08 08:20 | Outpatient (BNVA) | payer SELFPAY | PROVIDERS: PCP Internal Medicine; Visit Provider Internal Medicine | DX: E66.01 Morbid (severe) obesity due to excess calories (principal); Z68.41 Body mass index [BMI] 40.0-44.9, adult; Z23 Encounter for immunization; R73.01 Impaired fasting glucose; M17.11 Unilateral primary osteoarthritis, right knee; I10 Essential (primary) hypertension | CPT/HCPCS: 90471; 90677; 96127; 99212 ==

== ENCOUNTER 2025-02-14 08:52 | Outpatient (AMB) | payer BC, SELFPAY ==
--- NOTE | 2025-02-14 08:59 | MHC.PC.OV ---
Vital Signs 02/14/25 09:01 02/14/25 09:19 Height 6 ft Weight 304 lb BMI 41.2 BP 144/78 H 136/80 Blood Pressure Location Lt brachial Lt brachial Position Sitting Sitting Pulse 79 Pulse Source Pulse Oximeter Pulse Oximetry (%) 96 Oxygen Delivery Method Room Air Intake Visit Reasons: Annual Exam Allergies Sulfa (Sulfonamide Antibiotics) Allergy (Intermediate, Verified 02/14/25 09:03) p Medication List - Last Reconciled 02/14/25 by Shmuel Esquivel MD amlodipine 10 mg PO DAILY 90 days cyanocobalamin (vitamin B-12) 1,000 mcg PO DAILY 90 days triamcinolone acetonide 0.1% 1 appl topical BID 10 days valsartan-hydrochlorothiazide 320-25 mg 1 tab PO DAILY Tobacco use date assessed: 08/08/24 Fall risk assessment: No Falls in past year Last assessed Fall Risk: 02/14/25 Dental Screening Dental Screen Date: 08/08/24 [facility] Medical History (Updated 08/08/24 @ 08:35 by Shmuel Esquivel MD) Obesity Knee pain, right Hypertension Surgical History History of tonsillectomy H/O right knee surgery H/O left knee surgery Family History Mother Lung cancer Father Heart failure Heart attack Social History (Updated 02/09/24 @ 09:27 by Shmuel Esquivel MD) Housing: House Alcohol intake: current Alcohol intake frequency: holidays/special occasions only Comment: once a year 1 drink Patient Tobacco Use Status: Never used Tobacco Tobacco use type: Cigarette e-Cigarette/Vaping Use: Never Used Second Hand Smoke Exposure: No service: No Current occupational status: employed Cognitive needs: No Hearing needs: No Vision needs: Yes Questionnaire PHQ-9 Over the last 2 weeks, how often have you been bothered by any of the following problems? 1. Little interest or pleasure in doing things: not at all 2. Feeling down, depressed, or hopeless: not at all 3. Trouble falling or staying asleep, or sleeping too much: not at all 4. Feeling tired or having little energy: not at all 5. Poor appetite or overeating: not at all 6. Feeling bad about yourself - or that you are a failure or have let yourself or your family down: not at all 7. Trouble concentrating on things, such as reading the newspaper or watching television: not at all 8. Moving or speaking so slowly that other people could have noticed. Or the opposite - being so fidgety or restless that you have been moving around a lot more than usual: not at all 9. Thoughts that you would be better off or of hurting yourself in some way: not at all Total score: 0 Depression Screening Interpretation: Negative Depression Screening Done: Yes Source: Developed by Drs. Blaine Carrasco, Leighann Johnson, Nilson Salinas and colleagues, with an educational peggy from [employer]. Thrive Questionnaire Date Thrive assessed: 08/01/24 I am a: Patient What is your living situation today?: I have a steady place to live Within the past 12 months, did the food you bought not last and you didn't have the money to get more?: Never true Within the past 12 months, did you worry whether your food would run out before you got money to buy more?: Never true Do you have trouble paying for medicines?: No Do you have trouble getting transportation to medical appointments?: No Do you have trouble paying your heating and electricity bill?: No Do you have trouble taking care of your child, family member or friend?: No Do you have trouble with day-to-day activities such as bathing, preparing meals, shopping, managing finances, etc.?: No Are you currently unemployed and looking for a job?: No Are you interested in more education?: No Please select the resources that you would like help with: None Currently or been in a relationship where the following occur: No concerns reported THRIVE Score: 0 ESTEPHANIA-7 AMB Questionnaire ESTEPHANIA-7 Date ESTEPHANIA - 7 assessed: 08/08/24 Source: Developed by Drs. Blaine Carrasco, Leighann Johnson, Nilson Salinas and colleagues, with an educational peggy from [employer]. Review of Systems Const Denies poor appetite and Denies weakness Eyes Denies no additional complaints ENT Reports Normal hearing present, Denies dizziness, Denies nasal congestion, Denies tinnitus and Denies sore throat Card Denies chest pain, Denies syncope, Denies rapid heart rate and Denies dyspnea Resp Denies cough and Denies dyspnea GI Denies change in stool character, Reports constipation, Denies diarrhea, Denies nausea and Denies vomiting Denies dysuria and Denies urinary frequency Neuro Reports Normal hearing present, Denies confusion, Denies dizziness, Denies syncope and Denies weakness Psych Denies confusion Physical exam (Primary Care) Vital Signs: Last Vital Signs Pulse 79 02/14/25 09:01 BP 136/80 02/14/25 09:19 Pulse Ox 96 02/14/25 09:01 Oxygen Delivery Method Room Air 02/14/25 09:01 BMI result Body Mass Index 41.2 Tobacco/Smoking Status: Tobacco use Status Tobacco use date assessed 08/08/24 02/14/25 09:01 Patient Tobacco Use Status Never used Tobacco 02/14/25 09:01 Tobacco use type Cigarette 02/14/25 09:01 e-Cigarette/Vaping Use Never Used 02/14/25 09:01 PHQ-9: PHQ-9 Score PHQ-9: Total score 0 02/14/25 09:17 Depression Screening Interpretation: Negative Thrive Assessment: Date of Thrive Assessment Date Thrive assessed 08/01/24 02/14/25 09:01 Currently or been in a relationship where the following occur: No concerns reported Const General: No confusion Orientation/consciousness: No confusion HENMT Head: Yes normocephalic Ears: external ears normal and TM's normal bilaterally Face and sinus: Yes normal facial exam Mouth: moist mucous membranes Throat: Yes tonsils normal Eyes Conjunctivae: conjunctivae normal Pupils: Equal, round and reactive pupils present and Pupil accommodation reflex normal Direct Ophthalmoscopy: normal light reflex Neck Neck: No lymphadenopathy Thyroid: Thyroid normal Chest Chest palpation & inspection: normal inspection of the chest Resp Effort & Inspection: normal respiratory effort and no audible wheezes Auscultation: clear to auscultation bilaterally, no crackles, no wheezes and lung sounds not diminished Cardio Rate: regular rate Rhythm: regular rhythm Peripheral pulses: radial pulses present and dorsalis pedis present GI Other: Guaiac negative stools prostate normal Palpation (GI): no masses Auscultation: normal bowel sounds and normoactive bowel sounds Male General Exam: Yes normal external exam Skin General skin exam: no rashes or lesions noted Rashes: no rashes Neuro General: No confusion Cranial nerves: Yes Equal, round and reactive pupils present and Yes Normal hearing present Cognition (Neuro): normal cognition Gait exam (Neuro): Normal gait present Motor exam (neuro): 5/5 motor strength present throughout Deep tendon reflexes (DTR's): Right brachioradialis reflex intensity grade: 2+, Left brachioradialis reflex intensity grade: 2+, Right patellar reflex intensity grade: 2+ and Left patellar reflex intensity grade: 2+ Extrem Other: 2+ lower extremity edema General: No edema Office Procedures Flu Questionnaire Does the patient have a severe egg allergy?: No Does the patient have severe life threatening allergies?: No Does the patient have a fever or illness today?: No Has the patient ever had Guillain-Pepperell Syndrome?: No Has the patient ever had any past reaction to a flu shot?: No Immunizations Fluarix [id number] (PF) 45 mcg (15 mcg x 3)/0.5 mL IM syringe Performing Provider: Shmuel Esquivel MD [facility] [place] [facility] [place] Administered by: Taylor Davila CMA on 02/14/25 09:13 Dose Route Admin Location Dispensed Lot Number Expiration Date 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 0.5 mL IM Left Deltoid 0.5 mL [id number] 09/30/25 [id number] [employer] VIS Given Date VIS Provided VIS Publication Date 02/14/25 Single Vaccine 24 Eligibility Eligibility Date Funding Source Not [facility] Eligible 02/14/25 Private Coding Level of Care Code Est Pt Prev Care >65y(05072) Diagnoses Annual physical exam Z00.00 Essential hypertension I10 Hypertension type: essential hypertension Impaired fasting blood sugar R73.01 Morbid (severe) obesity due to excess calories E66.01 Osteoarthritis of right knee M17.11 Assessment & Plan Assessment & Plan (1) Annual physical exam: Code(s): Z00.00 - Encounter for general adult medical examination without abnormal findings Category: Medical Plan: Patient is advised to eat healthy, keep well hydrated, keep active and have adequate sleep. (2) Hypertension: Code(s): I10 - Essential (primary) hypertension Category: Medical Qualifiers: Hypertension type: essential hypertension Qualified Code(s): I10 - Essential (primary) hypertension Plan: Continue with blood pressure medication. Decrease salt intake and exercise presently on amlodipine 10 mg once a day valsartan hydrochlorothiazide 320/25 mg once a day but with the lower extremity edema 2+ amlodipine is taken off and metoprolol prescription sent in (3) Impaired fasting blood sugar: Code(s): R73.01 - Impaired fasting glucose Category: Medical Plan: Decrease the amount of carbohydrate intake, pasta, bread, rice and potatoes are all sugar and that is aside from all the sweet stuff, remember that fruits are good but they are Sweet also. (4) Morbid (severe) obesity due to excess calories: Code(s): E66.01 - Morbid (severe) obesity due to excess calories Category: Medical Plan: Diet and exercise (5) Osteoarthritis of right knee: Comment: Februaryevere right knee arthritis. No suprapatellar joint effusion. Increased soft tissue posterior to the knee joint questionable for a Brown's cyst. Code(s): M17.11 - Unilateral primary osteoarthritis, right knee Category: Medical Plan: Patient is known to have severe arthritis on the right knee. Will get an updated x-ray and refer to Orthopedics Plan History of Present Illness The patient is a 64-year-old male with a history of lupus, hypertension, and impaired glucose tolerance who presents for a physical exam. He has experienced a 7-pound weight loss, which he attributes to increased walking and decreased food intake during a recent vacation. For his hypertension, the patient is currently prescribed amlodipine 10 mg daily and valsartan-hydrochlorothiazide 320/25 mg daily. He also reports taking B12 but no other supplements. The patient has severe arthritis in his right knee, confirmed by an x-ray in 2021, and reports worsening pain due to a change in his job that requires more standing. He also has a developing cataract in his right eye, which an eye doctor is monitoring. He has a history of shingles, which occurred around his eye prior to receiving the shingles vaccine. His last colonoscopy was in 2018 and he is considered up to date. Recent blood work in August showed mildly elevated blood sugars with a normal hemoglobin A1c, and labs from January 2024 reportedly showed a normal blood count, cholesterol, and PSA. 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 Family history is positive for lung cancer in his mother and a heart attack in his father. Health Maintenance The patient is due for annual blood work. Orders have been placed for fasting labs, which the patient will complete today. Immunizations and colon cancer screening are up to date. Social History - Alcohol: Reports very rare alcohol consumption. - Tobacco: Denies smoking. - Illicit Drugs: Denies recreational drug use. - Occupation: His current job involves more standing, which exacerbates his knee pain. - Travel: The patient recently returned from a two-week cruise. Review of Systems - General: Reports an unintentional 7-pound weight loss. - Denies fever, syncope, or dizziness. - HEENT: Reports a developing cataract in the right eye. - He reports good hearing and denies problems with swallowing or coughing while eating. - Cardiovascular: Denies chest heaviness or discomfort. - Respiratory: Denies waking up short of breath. - Gastrointestinal: Reports good bowel movements. - Denies nausea, vomiting, heartburn, or blood in the stool. - Genitourinary: Reports occasional nocturia, about once per night. - Denies other urinary problems. - Musculoskeletal: Reports pain in the right knee. Physical Exam General: Cooperative, healthy appearing, comfortable, no acute distress and well developed Orientation: Patient oriented x3 Limitations: No limitations Head: Normal to inspection Ears: Hearing grossly normal bilaterally Nose: Normal external nose present Face and sinus: Normal facial exam Eyes: Appearance normal, both eyes and all related structures; noted cataract on the right side Neck: Normal visual inspection and Yes full ROM Respiratory: Normal respiratory effort and able to speak in complete sentences. Clear to auscultation bilaterally Cardiovascular: Regular rate and rhythm. Normal S1 and S2 GI: Normal to inspection. Soft to palpation and nontender Skin: No rashes or lesions noted Neuro: Patient oriented x3 Extremities: Swollen legs noted Results - Labs: Blood work in August showed mildly elevated blood sugars with a normal hemoglobin A1c, as well as normal electrolytes, renal function, and liver function. - Labs: Blood work in January 2024 was reported as showing a normal blood count, normal cholesterol, and a normal prostate number. - Imaging: An x-ray of the right knee from 2021 showed severe arthritis. Plan Patient was informed and verbally consented to the use of an ambient scribe for clinic note documentation during this visit. 1. Hypertension And Bilateral Lower Extremity Edema The patient's blood pressure was measured at 136/80 mmHg. The bilateral lower extremity edema is suspected to be a side effect of his amlodipine medication. The plan is to discontinue amlodipine and start a low dose of metoprolol. He will continue taking valsartan-hydrochlorothiazide. A follow-up appointment in three months is scheduled to assess his blood pressure response. 2. Severe Osteoarthritis Of The Right Knee The patient reports worsening right knee pain, exacerbated by increased standing at his job. His previous x-ray from 2021 showed severe arthritis. An updated x-ray of the right knee will be obtained, and a referral will be made to orthopedics for further evaluation. Discussion Notes I discussed with the patient that his leg swelling is likely a side effect of his amlodipine medication. We will stop the amlodipine and start a new medication, metoprolol, to manage his blood pressure while continuing his valsartan-hydrochlorothiazide. I advised him we will need to recheck his blood pressure in about three months to ensure it is responding well to the change. We also addressed his worsening right knee pain. Given that his last x-ray showing severe arthritis was three years ago, I recommended an updated x-ray and a referral to an marketing technology specialist for further evaluation. I provided him with orders for both the blood work and x-ray to be completed today. Patient Instructions - Stop taking your amlodipine medication. - Continue taking your valsartan-hydrochlorothiazide pill once a day. - Start taking the new blood pressure medication, metoprolol, as prescribed. - Go to the lab to have your blood drawn and to radiology for an x-ray of your right knee today. - We have referred you to an marketing technology specialist for your knee pain. - Please schedule a follow-up appointment in about three months to check your blood pressure. Orders: Orders Influenza [id number] Immunization Today Z23 - Encounter for immunization XR knee RT 2V Today M17.11 - Unilateral primary osteoarthritis, right knee Referrals Orthopedics Referral M17.11 - Unilateral primary osteoarthritis, right knee Medications: New metoprolol succinate ER 25 mg PO DAILY 30 tabs 3RF I10 - Essential (primary) hypertension Discontinued amlodipine Discontinued Reason: Doctor's Order 10 mg PO DAILY 90 days 90 tabs 1RF I10 - Essential (primary) hypertension
[2025-02-14 09:01] VITALS: BP 144/78; PULSE 79; O2SAT 96; BMI 41.2
--- OUTSIDE RECORDS SUMMARY | 2025-02-14 09:16 | XMS_ITS | Clinical Summary ---
Author Organization [employer] [facility] ity Address [address] [place] [address] Care Team Providers Care Car Detailer Name Role Phone Unavailable Primary Care Provider [...] 2009 Zoster Vaccines (1 of 2) 2009 Depression Screening 04/03/2024 Abdominal Aortic Aneurysm (A AA) Screen 09/24/2024 Cholesterol Screening (Lipid Panel) 09/24/2024 Falls Risk Assessment 09/24/2024 Hepatitis C Screening 09/24/2024 Social Influencers of Health Screening 09/24/2024 COVID-19 Vaccine (1 - 2024-2 6 season) 2024 Influenza Vaccine (#1) 2024 Colorectal Cancer Screening: Colonoscopy 05/24/2028 05/24/2018 RSV Immunization Adult Patie nts (1 - [...] on patient's age to complete this topic Procedures Procedure Name Priority Date/Time Associated Diagnosis Comments COLONOSCOPY Routine 05/24/2018 4:22 PM EST from Last 3 Months or Most Recently Relevant to Health Maintenance Results * COLONOSCOPY (05/24/2018 4:22 PM EST) Anatomical Region Laterality Modality Endoscopy us Historical Provider GI~PROCEDURE ORDERABLES F inal Result from Last 3 Months or Most Recently Relevant to Health Maintenance
[2025-02-14 09:19] VITALS: BP 136/80
== END 2025-02-14 09:36 | disposition home or self-care (01) ==
LOC: HO.HMCH 08:53
PROVIDERS: PCP Internal Medicine; Visit Provider Internal Medicine
DX: Z00.00 Encounter for general adult medical examination without abnormal findings (principal); E66.01 Morbid (severe) obesity due to excess calories; Z68.41 Body mass index [BMI] 40.0-44.9, adult; I10 Essential (primary) hypertension; R73.01 Impaired fasting glucose; M17.11 Unilateral primary osteoarthritis, right knee; Z23 Encounter for immunization

== ENCOUNTER 2025-02-14 08:52 | Outpatient (REF) | payer MEDICARE, SELFPAY ==
--- NOTE | ~2025-02-14 | XR_ITS ---
EXAMINATION: XR KNEE, RIGHT CLINICAL INFORMATION: M17.11 - Unilateral primary osteoarthritis, right knee COMPARISON: February 02, 2022 TECHNIQUE: AP and lateral views in standing position of the right knee. FINDINGS: Joint space narrowing involving the patellofemoral and medial lateral compartments pronounced on the medial compartment with associated sclerosis along the articular surface. There is chondrocalcinosis in the menisci region. No suprapatellar bursa joint effusion. No acute fracture or dislocation. There is a 5 cm opacity in the popliteal region. Marginal osteophyte formation and the femoral condyles and tibial plateau. Soft tissue calcifications in the medial aspect of the medial femoral condyle. XR/XR knee RT 2V IMPRESSION: Tricompartmental osteoarthrosis/osteoarthritis, severe involving mostly the medial compartment. Concerning CPPD. Questionable 5 cm popliteal cyst. Electronically signed by: Gabriel Zaldivar MD 02/14/2025 10:17 AM [facility]
[2025-02-14 11:05] LABS: Hematocrit 44.7 % (42.0-52.0); Hemoglobin 15.4 g/dl (14.0-18.0); Imm Gran Abs Auto 0.01 X10*3/uL (0.00-0.03); Imm Gran Pct Auto 0.2 % (0.0-0.4); Lymphocytes Absolute Auto 0.9 X10*3/uL (1.2-4.9); MANUAL DIFF FLAG SCAN; Mean Corpuscular HGB Conc 34.5 g/dl (31.0-36.0); Mean Corpuscular Hemoglobin 29.9 pg (27.0-33.0); Mean Corpuscular Volume 86.8 fL (80.0-98.0); NRBC Abs Auto 0.000 X10*3/uL (0.0-0.012); NRBC Pct Auto 0.0 /100WBC (0.0-0.2); PLT CLUMP 1; Red Blood Count 5.15 X10*6/uL (4.60-5.80); SCAN SMEAR FLAG 1
[2025-02-14 11:08] LABS: White Blood Count 4.2 X10*3/uL (4.8-10.8)
[2025-02-14 11:15] LABS: Alanine Aminotransferase 26 U/L (0-40); Albumin Level 4.7 g/dL (3.5-5.0); Alkaline Phosphatase 97 U/L (39-117); Anion Gap 15 (12-20); Aspartate Amino Transferase 26 U/L (5-37); Blood Urea Nitrogen 15 mg/dL (9-16); Calcium 10.0 mg/dL (8.4-10.2); Carbon Dioxide 25 mmol/L (22-29); Chloride 103 mmol/L (96-108); Cholesterol 203 mg/dL (<200); Estimated Glomerular Filt Rate > 60; HDL Cholesterol 77 mg/dL (>40); Potassium 3.5 mmol/L (3.3-5.1); Sodium 139 mmol/L (135-145); Total Protein 7.6 g/dL (6.5-8.0); Triglycerides 75 mg/dL (<150)
[2025-02-14 11:38] LABS: Free T4 (Free Thyroxine) 1.00 ng/dL (0.71-1.85); Thyroid Stimulating Hormone 1.67 uIU/mL (0.32-4.0)
[2025-02-14 11:50] LABS: Folate 8.1 ng/mL (> or = 4.0); Vitamin B12 866 pg/mL (200-900)
[2025-02-14 12:18] LABS: Platelet Count 175 X10*3/uL (160-400)
== END 2025-02-14 08:53 | disposition home or self-care (01) ==
LOC: HO.LAB 08:52
PROVIDERS: PCP Internal Medicine; Visit Provider Internal Medicine
DX: E78.00 Pure hypercholesterolemia, unspecified (principal); Z00.00 Encounter for general adult medical examination without abnormal findings; M17.11 Unilateral primary osteoarthritis, right knee; R73.01 Impaired fasting glucose; I10 Essential (primary) hypertension; Z23 Encounter for immunization; Z12.5 Encounter for screening for malignant neoplasm of prostate; Z13.31 Encounter for screening for depression; Z13.39 Encounter for screening examination for other mental health and behavioral disorders
CPT/HCPCS: 36415; 73560; 80053; 80061; 82607; 82746; 83036; 84153; 84439; 84443; 85025; 90471; 90656; 96127; 99397

== ENCOUNTER → 2025-02-14 10:04 | Outpatient (BNV) | payer BC, SELFPAY | PROVIDERS: PCP Internal Medicine; Visit Provider Radiology Diagnostic Radiology | DX: M17.11 Unilateral primary osteoarthritis, right knee (principal) | CPT/HCPCS: 73560 ==

== ENCOUNTER 2025-04-02 09:36 | Outpatient (AMB) | payer BC, SELFPAY ==
--- NOTE | 2025-04-02 09:38 | A.OFFVIS_ITS ---
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 Patient reports he had right knee surgery in 1976, says it was due to a football injury. He expresses he was okay in the knee after surgery. Roughly 6 years ago he had a fall and his knee bent behind him, he had a quad tendon repair in the left leg. He expresses he did treatment and therapy for the injury at the time. A few years later he says he had an onset of pain in the right knee. He has tried topical lidocaine, Tylenol 500 mg, home exercises, and elevation which managed his symptoms for a while however these no longer adequately relieve him. Prolonged standing and walking increases his pain and sending radiating pain into the chin. His daily living activities are effected due to his knee pain. The patient has failed the last 3 months of conservative treatments which has included Tylenol, anti-inflammatory medicines a home exercise program and physical therapy exercises. At this point his right knee pain is interfering with his activities of daily living and his ability to sleep well through the night. The patient did have a cortisone injection given into his right knee several years ago which gave him no relief. That injection was given at another facility. He wishes to hold off on total knee replacement surgery if at all possible. He has not had a viscosupplementation injection. Allergies Sulfa (Sulfonamide Antibiotics) Allergy (Intermediate, Verified 04/02/25 09:41) p Medication List - Last Reconciled 04/02/25 by Jhonathan Sweeney MD cyanocobalamin (vitamin B-12) 1,000 mcg PO DAILY 90 days metoprolol succinate ER 25 mg PO DAILY triamcinolone acetonide 0.1% 1 appl topical BID 10 days valsartan-hydrochlorothiazide 320-25 mg 1 tab PO DAILY [facility] Medical History Obesity Knee pain, right Hypertension Surgical History History of tonsillectomy H/O right knee surgery H/O left knee surgery Family History Mother Lung cancer Father Heart failure Heart attack Social History Housing: House Alcohol intake: current Alcohol intake frequency: holidays/special occasions only Comment: once a year 1 drink Patient Tobacco Use Status: Never used Tobacco Tobacco use type: Cigarette e-Cigarette/Vaping Use: Never Used Second Hand Smoke Exposure: No service: No Current occupational status: employed Cognitive needs: No Hearing needs: No Vision needs: Yes Physical Exam Vital Signs: BMI result Body Mass Index 40.7 Extrem Other: Right knee examination shows a minimal effusion, palpable crepitus with range of motion, pain with range of motion, no instability Results Reviewed Results Reviewed: X-rays of the patient's right knee show joint space narrowing, subchondral sclerosis, no acute bony abnormalities Assessment & Plan Assessment & Plan (1) Osteoarthritis of right knee: Code(s): M17.11 - Unilateral primary osteoarthritis, right knee Category: Medical Plan Mr. Díaz presents with right knee pain due to osteoarthritis. I had a lengthy discussion with the patient regarding the treatment options. He wishes to hold off on total knee replacement surgery if at all possible. I agree with this plan. I will see if the patient's insurance company will cover a viscosupplementation injection, such as Durolane, for his right knee. I will see him back once the injection is approved. Feel free to call me at any time should questions regarding his orthopedic management arise. Thank you very much for asking me to see this very friendly gentleman. I spent 22 minutes in reviewing the patient's records and imaging studies, seeing the patient and documenting in the medical record. Coding Level of Care Code New Pt Level 3 (11904) Add On Problem Visit Only Diagnoses Osteoarthritis of right knee M17.11
[2025-04-02 09:40] VITALS: BMI 40.7
--- OUTSIDE RECORDS SUMMARY | 2025-04-02 10:07 | XMS_ITS | Clinical Summary ---
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
== END 2025-04-02 09:58 | disposition home or self-care (01) ==
PROVIDERS: PCP Internal Medicine; Visit Provider Orthopaedic Surgery
DX: M17.11 Unilateral primary osteoarthritis, right knee (principal)
CPT/HCPCS: 99203